=== PATIENT | male | born 1985 | race Caucasian/White ===

== ENCOUNTER 2020-01-31 12:39 | Emergency (ER) | payer SELFPAY ==
--- NOTE | 2020-01-31 13:27 | ER ---
Nurse's Notes [facility] Name: Kenton Cedillo Age: 34 yrs Sex: Male : 1985 Arrival Date: 01/31/2020 Time: 12:41 Bed 16 Private MD: Diagnosis: Encounter for screening, unspecified Presentation: 01/30 12:55 Chief complaint: Patient states: "I'm wanted by the [place] [employer]. My Dad thinks I'm ss crazy." Denies SI/ HI. Coronavirus screen: Client denies travel out of the [place] in the last 14 days. Ebola Screen: Patient denies exposure to infectious person. Patient denies travel to an Ebola-affected area in the 21 days before illness onset. Initial Sepsis Screen: Does the patient meet any 2 criteria? No. Patient's initial sepsis screen is negative. Does the patient have a suspected source of infection? No. Patient's initial sepsis screen is negative. Risk Assessment: Do you want to hurt yourself or someone else? Patient reports no desire to harm self or others. Onset of symptoms is unknown. 12:55 Method Of Arrival: Ambulatory ss 12:55 Acuity: LYSSA 3 ss Historical: - Allergies: 12:57 No Known Allergies; ss - Home Meds: 12:57 None [Active]; ss - PMHx: 12:57 None; ss - PSHx: 12:57 None; ss - Immunization history:: Adult Immunizations up to date. - Social history:: Smoking status: Patient reports the use of cigarette tobacco products, smokes two packs cigarettes per day. Screenin:26 Abuse screen: Denies threats or abuse. Nutritional screening: No deficits noted. ll1 Tuberculosis screening: No symptoms or risk factors identified. Fall Risk None identified. Total Randle Fall Scale indicates No Risk (0-24 pts). Assessment: 13:24 General: Appears in no apparent distress. Behavior is calm, cooperative, appropriate ll1 for age. General: Father brought him in for paranoia. Denies SI/HI. No pain, gait steady. . Pain: Denies pain. Neuro: No deficits noted. Cardiovascular: No deficits noted. Respiratory: No deficits noted. GI: No deficits noted. Vital Signs: 12:55 BP 149 / 83; Pulse 103; Resp 16; Temp 98.6(TE); Pulse Ox 100% on R/A; Weight 74.84 kg; Height 5 ft. 10 in. (177.80 cm); Pain 0/10; 12:55 Body Mass Index 23.67 (74.84 kg, 177.80 cm) ED Course: 12:41 Patient arrived in ED. ds1 12:57 Triage completed. ss 12:57 Arm band placed on right wrist. ss 13:07 Es[facility]anza [facility]C [facility] kb 13:07 Heath Herzog MD is Attending Physician. kb 13:08 Casey Butcher, RN is Primary Nurse. ll1 13:26 Patient has correct armband on for positive identification. Bed in low position. Call ll1 light in reach. Side rails up X 1. Cardiac monitoring not applicable on this patient. 13:27 No provider procedures requiring assistance completed. Patient did not have IV access ll1 during this emergency room visit. Administered Medications: No medications were administered Outcome: 13:26 Discharge ordered by . kb 13:26 Patient left the ED. ll1 13:27 Medical screen evaluation completed per provider. ll1 13:27 Condition: stable 13:27 Demonstrated understanding of instructions. Signatures: Esperanza Gonzalez FNP-C FNP-Ckb Sanford, Demi ds1 Deana Gonzalez RN RN Casey Butcher, MEGHANN RN ll1
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
[2020-02-05 17:24] VITALS: BP 149/83; TEMP 98.6; O2SAT 100
== END 2020-01-31 13:26 | disposition home or self-care (01) ==
LOC: ER 12:39
DX: F22 Delusional disorders (principal); F23 Brief psychotic disorder; F17.210 Nicotine dependence, cigarettes, uncomplicated
CPT/HCPCS: 99281

== ENCOUNTER 2020-04-14 23:57 | Emergency (ER) | payer SELFPAY ==
--- NOTE | 2020-04-15 01:18 | ER ---
Nurse's Notes [facility] Name: Kenton Cedillo Age: 34 yrs Sex: Male : 1985 Arrival Date: 04/15/2020 Time: 00:00 Bed External Waiting Private MD: Diagnosis: ED Course: 04/15 00:00 Patient arrived in ED. ag3 Administered Medications: No medications were administered Outcome: : Patient left the ED. sg Signatures: Jacoby Alarcon RN RN Kelsey Crow ag3
== END 2020-04-15 01:17 | disposition left against medical advice (07) ==
LOC: ER 23:57
DX: Z53.21 Procedure and treatment not carried out due to patient leaving prior to being seen by health care provider (principal)